=== PATIENT | male | born 1965 | race Caucasian/White ===

== ENCOUNTER 2021-10-26 01:20 | Emergency (ER) | payer BC ==
[~2021-10-26] VITALS: Ht 180.3 cm; Wt 100.0 kg
[~2021-10-26 01:20] MED LIST: CIPRO 500MG TA500 MG PO; FLAGYL250 MG PO; FLONASE NASAL S16 GM NS; FLONASEALLERGY NS; GLUCOPHAGE1000 MG PO; LORTAB 5/500 501 TAB PO; NEXIUM 20MG20 MG PEG; NEXIUM 40MG40 MG PO; SUDAFED 12 HOU120 MG PO; SUDAFED30 MG PO; ZOFRAN4 MG PO
[2021-10-26 01:25] VITALS: TEMP 97.7
[2021-10-26 02:09] LABS: COLLECTION METHOD CLEAN CATCH
[2021-10-26 02:10] LABS: BASO # 0.1 K/mm3 (0.0-0.2); BASO % 0.8 % (0.0-2.0); EOS # 0.3 K/mm3 (0.0-0.7); EOS % 5.5 % (0.0-4.0); GRAN # 3.4 K/mm3 (1.4-6.5); GRAN % 54.6 % (42.2-75.2); HEMATOCRIT 45.1 % (42.0-52.0); HEMOGLOBIN 15.2 g/dl (13.5-18.0); LYMPH # 1.9 K/mm3 (1.2-3.4); LYMPH % 30.7 % (20.0-51.0); MEAN CELL VOLUME 90 fl (80.0-100.0); MEAN CORPUSCULAR HEMOGLOBIN 31 pg (27-31); MEAN CORPUSCULAR HGB CONC 34 g/dl (33.0-37.0); MEAN PLATELET VOLUME 11.9 fl (7.4-10.4); MONO # 0.5 K/mm3 (0.1-0.6); MONO % 8.2 % (1.7-9.3); PLATELET COUNT 162 K/mm3 (130-400); RED BLOOD COUNT 4.99 M/mm3 (4.20-5.60); REDCELL DISTRIBUTION WIDTH-CV 13.7 % (11.5-14.5)
[2021-10-26 02:20] LABS: CALCIUM 9.8 mg/dL (8.4-10.2); CREATININE, serum 0.97 mg/dL (0.72-1.25); POTASSIUM 3.7 mmol/L (3.5-4.5)
[2021-10-26 02:29] LABS: MUCOUS Present (NOT PRESENT); SQUAMOUS EPITHELIAL None Seen /hpf (0-10); URINE APPEARANCE Turbid (CLEAR/HAZY); URINE BACTERIA None Seen /hpf (NONE SEEN); URINE CALCIUM OXALATE CRYSTAL Present (NOT PRESENT); URINE COLOR Amber (YELLOW); URINE PROTEIN(semi-quant) 3+ (NEGATIVE); URINE RBC >50 /hpf (0-2)
[2021-10-26 02:30] LABS: URINE BLOOD 3+ (NEGATIVE); URINE GLUCOSE Negative (NEGATIVE); URINE KETONE 1+ (NEGATIVE); URINE NITRATE Positive (NEGATIVE)
[2021-10-26] MEDS ORDERED: ZOFRAN ODT4 MG PO (03:33)
[2021-10-26] MEDS ORDERED: ROXICODONE 55 MG/TAB PO (03:33)
[2021-10-26] MEDS ORDERED: CEPHALEXIN500 M1 PO (03:33)
[2021-10-26 04:19] VITALS: BP 145/79; PULSE 75
== END 2021-10-26 04:10 | disposition home or self-care (01) ==
LOC: COL.ER 01:20
PROVIDERS: Emergency Medicine
DX: N20.1 Calculus of ureter (principal); N39.0 Urinary tract infection, site not specified
CPT/HCPCS: J0696; J1170; J2270; J2405; J7030

== ENCOUNTER 2023-03-25 08:55 | Day surgery (SDC) | payer BC ==
[~2023-03-25] VITALS: Ht 180.3 cm; Wt 105.4 kg
[2023-03-25] VITALS (9 sets, daily range): BP systolic 127–167; BP diastolic 69–83; PULSE 58–74; TEMP 98.8
[~2023-03-25 08:55] MED LIST changes: +CEPHALEXIN500 M1 PO; +ROXICODONE 55 MG/TAB PO; +ZOFRAN ODT4 MG PO
[2023-03-25] MEDS ORDERED: 1/2 NS 1,000 ML IV SCH (09:15)
[2023-03-25 09:35] LABS: HEMOGLOBIN 14.5 g/dl (13.5-18.0); MEAN CELL VOLUME 84 fl (80.0-100.0); MEAN CORPUSCULAR HEMOGLOBIN 29 pg (27-31); MEAN CORPUSCULAR HGB CONC 35 g/dl (33.0-37.0); MEAN PLATELET VOLUME 11.9 fl (7.4-10.4); PLATELET COUNT 141 K/mm3 (130-400); RED BLOOD COUNT 5.02 M/mm3 (4.20-5.60); REDCELL DISTRIBUTION WIDTH-CV 13.4 % (11.5-14.5)
[2023-03-25] MEDS ORDERED: PRILOSEC 20MG20 MG PO (09:37)
[2023-03-25 09:40] LABS: PROTHROMBIN TIME 11.2 SECONDS (9.7-12.8)
[2023-03-25 09:43] LABS: PARTIAL THROMBOPLASTIN TIME 28.9 SECONDS (26.0-37.0)
[2023-03-25 09:51] LABS: CALCIUM 9.4 mg/dL (8.4-10.2); CREATININE, serum 0.89 mg/dL (0.72-1.25); POTASSIUM 3.9 mmol/L (3.5-4.5)
--- NOTE | 2023-03-25 09:56 | NUR ---
SEE MERGE FOR INTERVENTIONS, MEDICATIONS AND VITAL SIGNS.
[2023-03-25] MEDS ORDERED: Iohexol 350 - 100 ML VIAL IA ONE (10:00)
[2023-03-25] MEDS ORDERED: Nitroglycerin 100 MCG/ML (Cath Lab) 10 ML VIAL IA SCH (10:02)
[2023-03-25] MEDS ORDERED: Verapamil 2.5 MG/ML 2 ML VIAL IA SCH (10:03)
[2023-03-25] MEDS ORDERED: Heparin 1,000 UNITS/ML 10 ML Multi-Dose VIAL IA SCH (10:05)
[2023-03-25] MEDS ORDERED: fentaNYL 50 MCG/ML 2 ML VIAL IV SCH (12:07)
[2023-03-25] MEDS ORDERED: Midazolam 2 MG/2 ML VIAL IV SCH (12:08)
[2023-03-25] MEDS ORDERED: TOPROL XL 50MG50 MG PO (14:58)
--- NOTE | 2023-03-25 16:29 | NUR ---
pt tolerated recovery period well and was assisted to main lobby via wheelchair upon discharge. IV was discontinued and vs remained within normal limits. right radial dressing and right femoral dressing remained clean dry and intact and pt verbalized understanding of discharge instructions. pt free from acute concerns and complaints at time of discharge.
== END 2023-03-25 16:31 | disposition home or self-care (01) ==
LOC: COL.CAR 08:55
PROVIDERS: Internal Medicine Cardiovascular Disease
DX: I27.20 Pulmonary hypertension, unspecified (principal); I42.2 Other hypertrophic cardiomyopathy; E78.00 Pure hypercholesterolemia, unspecified; R06.09 Other forms of dyspnea; R00.2 Palpitations; I34.0 Nonrheumatic mitral (valve) insufficiency; Z87.891 Personal history of nicotine dependence
CPT/HCPCS: C1769; C1887; C1894; J1644; J2250; J3010; Q9967